=== PATIENT | female | born 1965 | race Caucasian/White ===

== ENCOUNTER 2020-06-16 22:21 | Emergency (ER) | payer OTHER, SELFPAY ==
--- NOTE | ~2020-06-16 | XR_ITS ---
EXAMINATION: XR chest 1V portable EXAM DATE: 06/16/2020 22:46 INDICATION: Chills and shortness of breath. Hypotension. TECHNIQUE: Portable AP frontal chest x-ray was obtained. There is no prior study for comparison. FINDINGS: The lungs are clear. There are no pleural effusions. Cardiomediastinal silhouette is norm al. There is no pneumothorax suspected. The bones and soft tissues are unremarkable. IMPRESSION: No acute cardiopulmonary findings. Reviewed, dictated and finalized at location A.
--- NOTE | ~2020-06-16 | CT_ITS ---
EXAMINATION: CT chest abdomen pelvis wo con DATE: 06/17/2020 05:04 INDICATION: Sepsis and hypotension TECHNIQUE: Transaxial computed tomographic images of the chest, abdomen, and pelvis were obtained wit hout intravenous contrast. The dose-length product (DLP) was 542.37 mGy-cm. Automated exposure contro l and iterative reconstruction technique were employed. COMPARISON: None FINDINGS: CHEST CT: There is smooth interlobular septal thickening throughout the lungs. There is mild emphysema. Mild de pendent atelectasis is noted. There is no pleural effusion or pneumothorax. There are a few scattered 2 to 3 mm pulmonary nodules, likely infectious or inflammatory. There is mild circumferential wall t hickening of the distal esophagus. The heart size is normal. Calcified coronary artery atherosclerosi s is noted. There are no pathologically enlarged thoracic lymph nodes. There is mild thoracic spondyl osis. ABDOMEN/PELVIS CT: A small sliding hiatal hernia is noted. The liver, spleen, pancreas, and adrenal glands are normal. A stone is present in the gallbladder. There is gallbladder wall thickening and a trace amount of righ t upper quadrant ascites. The kidneys are unremarkable. There is calcified atherosclerosis of the aor ta and many of the other arteries. No pathologically enlarged abdominal or pelvic lymph nodes are julissa ntified. There is no free intraperitoneal gas or evidence of bowel obstruction. A moderate volume of colonic stool is present. There is severe spondylosis at L1-2. IMPRESSION: 1. Cholelithiasis with findings suspicious for acute cholecystitis. 2. Emphysema with possible mild pulmonary edema. 3. Circumferential wall thickening of the distal esophagus which may reflect esophagitis. Endoscopic evaluation is recommended. Reviewed, dictated and finalized at location B. IMPRESSION: 1. Cholelithiasis with findings suspicious for acute cholecystitis. 2. Emphysema with possible mild pulmonary edema. 3. Circumferential wall thickening of the distal esophagus which may reflect es ophagitis. Endoscopic evaluation is recommended.
--- NOTE | 2020-06-16 22:30 | ECG_ITS ---
Measurements Intervals [place] Rate: 126 P: 66 CO: 129 QRS: -15 QRSD: 82 T: 66 QT: 293 QTc: 425 Interpretive Statements SINUS TACHYCARDIA INCOMPLETE RIGHT BUNDLE BRANCH BLOCK BASELINE ARTIFACT- I, II, III, AVR, AVL, AVF, V1-V2 ABNORMAL ECG Electronically Signed On 06-17-2020 7:27:48 CDT by Talib Hinton D.O.
[2020-06-16 22:31] VITALS: BP 75/46; PULSE 119; RESP 22; TEMP 37.3; O2SAT 95
--- NOTE | 2020-06-16 22:33 | ED.SOB ---
HPI - SOB/Dyspnea General Chief Complaint: Shortness of Breath/Dyspnea Stated Complaint: AMB Time Seen by Provider: 06/16/20 22:30 Source: patient Mode of arrival: EMS Limitations: no limitations History of Present Illness HPI Narrative: 55-year-old woman with a history of COPD and smoking brought in today by EMS after she called regarding shortness of breath that started a few hours prior to arrival. She states for the last few days she has been having chills, chest pain, fatigue as well as feeling feverish. She began having vomiting this evening. She has been at home for the duration of the recent pandemic her goes out for errands, groceries, etc. He has been asymptomatic. She denies history of coronary artery disease. MD elicited complaint: shortness of breath and cough Pertinent past history: COPD Onset (ago): day(s) Timing: constant and progressively worsening Severity: moderate Exacerbating factors: nothing Relieving factors: nothing Known history of: COPD Associated symptoms: chest pain, fever and cough Treatment prior to arrival: oxygen Related Data Home oxygen amount: none Home Medications Medication Instructions Recorded Confirmed albuterol sulfate 2 inh INHALATION Q4H PRN 06/16/20 06/16/20 cetirizine 10 mg PO DAILY 06/16/20 06/16/20 diphenhydramine HCl [Benadryl] 25 mg PO TID PRN 06/16/20 06/16/20 oxycodone-acetaminophen [Percocet] 1 tablet PO Q4H PRN 06/16/20 06/16/20 Allergies Allergy/AdvReac Type Severity Reaction Status Date / Time glecaprevir [From Mavyret] Allergy Itching Verified 06/17/20 01:15 meperidine [From Demerol] Allergy Anaphylaxis Verified 06/16/20 22:48 nicotine Allergy Itching Verified 06/16/20 22:48 pibrentasvir [From Mavyret] Allergy Itching Verified 06/17/20 01:15 ivp dye Allergy Anaphylaxis Uncoded 06/16/20 22:48 Review of Systems Constitutional: Constitutional: Reports chills, Reports fatigue and Reports fever(s) Eyes: Eyes: Denies change in vision and Denies photophobia ENT: Denies dysphagia, Denies nasal congestion and Denies sore throat Cardiovascular: Cardiovascular: Reports chest pain, Reports rapid heart rate and Denies radiating jaw, neck or arm pain Respiratory: Respiratory: Reports cough, Reports dyspnea and Denies wheezing Gastrointestinal: Gastrointestinal: Denies abdominal pain, Denies diarrhea, Reports nausea and Reports vomiting Genitourinary: Genitourinary: Denies nocturia and Denies dysuria Musculoskeletal: Musculoskeletal: Denies back pain, Denies joint swelling and Denies muscle cramps Integumentary/Breasts: Skin/Breast: Denies pruritus, Denies erythema and Denies rash Neurologic: Denies vertigo, Denies dizziness and Denies syncope Hematologic/Lymphatic: Hematologic/Lymphatic: Denies easy bleeding and Denies easy bruising Allergic/Immunologic: Allergic/Immunologic: Denies lip swelling and Denies wheezing PMFSH Past Medical History Medical History (Updated 06/17/20 @ 04:42 by Bryant Dewitt MD) Chronic back pain COPD (chronic obstructive pulmonary disease) Surgical History Surgical History (Updated 06/16/20 @ 22:53 by Bryant Dewitt MD) H/O colectomy S/P takedown. H/O: Personal history of spine surgery T12-L1 fusion Social History Social History Smoking status: Current every day smoker Substance use: never Living arrangements: with family Gender identity (if verbalized by the patient): Female Exam Narrative: Exam Narrative: moderate acute distress. Const: General: alert and ill appearing Orientation/consciousness: patient oriented x3 HENMT: Head: normal to inspection Ears: external ears normal, TM's normal bilaterally and EAC's normal Mouth: Yes moist mucous membranes Throat: posterior oropharynx normal Eyes: Conjunctivae: conjunctivae normal Pupils: Equal, round and reactive pupils present EOM: EOMs intact bilaterally Neck:
[2020-06-16] MEDS: SODIUM CHLORIDE 0.9% IV 1,000 ML 999 ML IV CONT ×2 (22:43→22:50)
[2020-06-16] MEDS: ONDANSETRON INJ 4 MG/2 ML VIAL IV PUSH (22:43)
[2020-06-16 22:45] VITALS: PULSE 117
[2020-06-16 22:46] VITALS: BP 95/47; PULSE 116; RESP 22; O2SAT 100
[2020-06-16 23:37] LABS: Base Excess ABG -6.2 mmol/L (0-2); Oxygen Content ABG 19.2 %vol (16.0-22.0); Oxygen Saturation ABG 96.1 % (95-97); Oxyhemoglobin 94.4 % (94-100); PCO2 ABG 36.7 mmHg (35-45); PO2 ABG 87.9 mmHg (80-90); Total Hemoglobin 14.4 g/dL; pH ABG 7.33 (7.35-7.45)
[2020-06-16 23:43] LABS: Basophils Absolute Auto 0.01 K/mm3 (0.00-0.10); Basophils Percent Auto 0.2 % (0.0-1.0); Eosinophils Absolute Auto 0.01 K/mm3 (0.02-0.50); Eosinophils Percent Auto 0.2 % (1.0-6.0); Hematocrit 42.6 % (35.0-49.0); Hemoglobin 13.9 g/dL (12.0-15.0); Immature Granulocyte Absolute 0.06 K/mm3 (0.00-0.00); Immature Granulocyte Percent A 1.2 % (0.0-0.0); Lymphocytes Absolute Auto 0.27 K/mm3 (1.10-4.50); Lymphocytes Percent Auto 5.4 % (18.0-42.0); Mean Corpuscular HGB Conc 32.6 g/dL (32.0-36.0); Mean Corpuscular Hemoglobin 34.2 pg (27.0-31.0); Mean Corpuscular Volume 104.7 fL (78.0-102.0); Mean Platelet Volume 9.3 fl (9.2-11.8); Monocytes Absolute Auto 0.02 K/mm3 (0.10-0.90); Monocytes Percent Auto 0.4 % (2.0-11.0); Neutrophils Absolute Auto 4.6 K/mm3 (1.7-7.2); Neutrophils Percent Auto 92.6 % (50.0-70.0); Platelet Count Result 189 K/mm3 (150-420); Red Blood Count 4.07 M/mm3 (4.20-5.40)
[2020-06-16 23:47] LABS: Device NASAL CANNULA; Modified Allen's Test Pass; Site Drawn RIGHT RADIAL
[2020-06-16 23:55] VITALS: BP 100/52; PULSE 115; RESP 20; O2SAT 100
[2020-06-16 23:57] LABS: Alanine Aminotransferase 85 U/L (14-59); Albumin Level 2.9 g/dL (3.4-5.0); Alkaline Phosphatase 194 U/L (46-116); Anion Gap 9 mmol/L (8-16); Aspartate Amino Transferase 72 U/L (15-37); Bilirubin,Total 0.8 mg/dL (0.00-1.00); Blood Urea Nitrogen 9 mg/dL (7-18); Calcium 8.1 mg/dL (8.5-10.1); Carbon Dioxide 25 mmol/L (21-32); Chloride 106 mmol/L (98-108); Estimated CRCL calculation 33 ml/min; Estimated Glomerular Filt Rate 36; Glucose 112 mg/dL (70-99); Osmolality Calculated 289 mOsm/kg (285-295); Sodium 140 mmol/L (136-145); Total Protein 6.6 g/dL (6.4-8.2)
[2020-06-17 00:02] LABS: Lactic Acid Reflex 5.7 mmol/L (0.4-2.0)
[2020-06-17 00:05] LABS: INR 1.2; Prothrombin Time 12.6 Seconds (9.64-11.0)
[2020-06-17 00:13] LABS: CRP < 0.2 mg/dL (0.0-0.9)
[2020-06-17 00:16] LABS: D Dimer 0.54 mg/L (0.19-0.50)
[2020-06-17 00:24] LABS: Influenza Control Valid (Valid)
[2020-06-17 00:29] LABS: Add Urine Microscopic? YES; Appearance Urine Clear (Clear); Bilirubin Urine Negative (Negative); Blood Urine Negative (Negative); Color Urine Yellow (Yellow); Glucose Urine UA Negative (Negative); Ketones Urine Negative (Negative); Leukocyte Esterase Ur Negative LEU/UL (Negative); Nitrate Urine Negative (Negative); Protein Urine Trace (Negative); Urobilinogen Urine 0.2 mg/dL (0.2-1.0)
[2020-06-17 00:32] VITALS: BP 109/55; PULSE 106; RESP 20; O2SAT 96
[2020-06-17 00:37] LABS: Bacteria Urine Trace /hpf; RBC Urine 0-2 /hpf (0-2); Squamous Epithelial Cell Urine Few /hpf (Few); WBC Urine 0-3 /hpf (0-3)
--- NOTE | 2020-06-17 01:01 | PC.NURSE ---
Pt. requests transfer to [facility]. ERP to discuss tests c pt. and need for transfer. Call placed to Hannah at [facility], will await call back from Hospitalist.
[2020-06-17] MEDS: SODIUM CHLORIDE 0.9% IV 1,000 ML 999 ML IV CONT ×2 (01:14→03:04)
[2020-06-17 01:26] LABS: Troponin I < 0.02 ng/mL (0.00-0.056)
--- NOTE | 2020-06-17 02:12 | PC.NURSE ---
Call back from [facility], no bed available for ICU status, Pt. requests transfer to [facility], call placed to [facility]. No beds available here either. Spoke c pt. and she is ok c transfer to someplace in [place].
--- NOTE | 2020-06-17 02:25 | PC.NURSE ---
Call placed to [facility] and [facility], no ICU beds available at either location at this time. Awaiting call back fro [facility] on status for transfer and if another bed could be available. Pt. resting comfortably on side at this time and BP noted now 93/55.
[2020-06-17 02:27] VITALS: BP 93/55; PULSE 102; RESP 20; O2SAT 98
[2020-06-17 02:36] LABS: Reflex Lactic Acid Yes or No Add Lactic
--- NOTE | 2020-06-17 02:52 | PC.NURSE ---
Call placed to [facility] for possible transfer.
[2020-06-17 03:18] VITALS: BP 86/58; PULSE 103; RESP 18; O2SAT 94
[2020-06-17 03:24] VITALS: TEMP 38.1
--- NOTE | 2020-06-17 04:21 | PC.NURSE ---
Call back from [facility] and will call back c [facility] and have possible bed for pt. Will await call back.
--- NOTE | 2020-06-17 04:26 | ECG_ITS ---
Measurements Intervals [place] Rate: 104 P: 62 MT: 151 QRS: 48 QRSD: 88 T: 57 QT: 323 QTc: 426 Interpretive Statements SINUS TACHYCARDIA INCOMPLETE RIGHT BUNDLE BRANCH BLOCK BORDERLINE ECG Electronically Signed On 06-17-2020 7:28:48 CDT by Talbi Hinton D.O.
[2020-06-17 05:03] LABS: Troponin I < 0.02 ng/mL (0.00-0.056)
[2020-06-17 05:09] LABS: Lactic Acid 2.3 mmol/L (0.4-2.0)
[2020-06-17 05:22] VITALS: BP 93/54; PULSE 106; RESP 20; TEMP 38.1; O2SAT 95
--- NOTE | 2020-06-17 05:26 | PC.NURSE ---
Report given to JAYANT Walter at [facility] paperwork signed for transfer and EMS [facility] called for transfer.
[2020-06-17 05:42] VITALS: BP 81/57; PULSE 103
--- NOTE | 2020-06-17 05:59 | PC.NURSE ---
EMS unable to take pt. on [facility], Nurse called for transport of pt. Awaiting RN for transfer
[2020-06-17] MEDS: SODIUM CHLORIDE 0.9% IV 1,000 ML 150 ML IV CONT (06:38)
--- NOTE | 2020-06-17 06:59 | PC.NURSE ---
Report given to Fredis RIVERA RN to go on transfer c pt. VSS at this time. BP96/62. Pt. resting.
[2020-06-18 01:17] LABS: SARS-CoV-2 RNA PCR Negative
== END 2020-06-17 07:07 | disposition short-term general hospital (02) ==
PROVIDERS: Emergency Provider Emergency Medicine
DX: A41.9 Sepsis, unspecified organism (principal); N17.9 Acute kidney failure, unspecified; K80.20 Calculus of gallbladder without cholecystitis without obstruction; I95.9 Hypotension, unspecified; R06.02 Shortness of breath; J44.9 Chronic obstructive pulmonary disease, unspecified; M54.5 Low back pain; Z20.828 Contact with and (suspected) exposure to other viral communicable diseases; F17.200 Nicotine dependence, unspecified, uncomplicated
CPT/HCPCS: 36415; 36600; 71045; 71250; 74176; 80053; 81001; 82805; 83605; 84484; 85025; 85380; 85610; 85730; 86140; 87040; 87635; 87804; 93005; 96361; 96365; 96368; 96374; 96375; 99285; C9803; J2370; J2405; J2543; J3370; J7030; J7060; U0003